=== PATIENT | male | born 1965 | race Caucasian/White ===

== ENCOUNTER 2020-12-27 06:47 | Inpatient (IN) | payer MEDICARE ==
[~2020-12-27] VITALS: Ht 170.2 cm; Wt 110.4 kg
[~2020-12-27 06:47] MED LIST: ASPIRIN CHEWABL81 MG PO; ATORVASTATIN CA20 MG PO; BRILINTA 90 MG90 MG PO; ENTRESTO 24 MG1 EACH PO; GABAPENTIN300 MG PO; GLIPIZIDE5 MG PO; GLUCOPHAGE500 MG PO; JANUVIA100 MG PO; LATANOPROST2.5 ML OP; LEVAQUIN750 MG PO; LIPITOR TAB 2020 MG PO; LOPRESSOR 25 MG25 MG PO; TOPROL XL25 MG PO; TRESIBA FL100 UNIT/1 SQ; TYLENOL 8 HOUR650 MG PO; TYLENOL WITH C1 EACH PO; XALATAN OP SOL2.5 ML OP
[2020-12-27 07:39] LABS: HEMOGLOBIN 12.4 gm/dl (14.0-17.5); RED BLOOD COUNT 4.44 M/UL (4.20-5.50); WHITE BLOOD COUNT 5.3 K/UL (4.5-11.0)
[2020-12-27 08:10] LABS: BUN/CREATININE RATIO 14 (0-10)
[2020-12-27] MEDS ORDERED: TADALAFIL5 MG PO (14:35)
[2020-12-27] MEDS ORDERED: COMBIGAN EYE DRO5 ML EYEBOTH (14:36)
[2020-12-27] MEDS ORDERED: BACTRIM DS TAB1 EACH PO (14:36)
[2020-12-27] MEDS ORDERED: ZETIA10 MG PO (14:38)
[2020-12-27] MEDS ORDERED: BYDUREON P2 MG/0.65 SQ ×2 (14:40→14:41)
[2020-12-27] MEDS ORDERED: HUMALOG100 UNIT/1 SQ (14:42)
[2020-12-28 03:58] LABS: HEMOGLOBIN 12.1 gm/dl (14.0-17.5); RED BLOOD COUNT 4.22 M/UL (4.20-5.50); WHITE BLOOD COUNT 5.3 K/UL (4.5-11.0)
[2020-12-28 04:22] LABS: BUN/CREATININE RATIO 18 (0-10)
--- NOTE | 2020-12-28 11:58 | NUR ---
ASSISTED SURGEON WITH INCISION AND DRAINAGE TO ABSCESS ON BACK OF NECK. INCISION AND DRAINAGE CLOSED WITH 0.25 INCH DRY PACKING WHICH SURGEON STATES WILL NEED TO BE PACKED DAILY. WATCHED SURGEON DEMONSTRATED HOW TO PACK WOUND
[2020-12-29 03:38] LABS: BUN/CREATININE RATIO 18 (0-10)
[2020-12-29] MEDS ORDERED: BACTRIM DS TAB1 EACH PO (16:54)
== END 2020-12-29 17:00 | disposition home or self-care (01) | DRG 580 ==
LOC: ER1 06:47 → CDU 11:09 → M/S 11:09
PROVIDERS: Emergency Medicine; Physician Assistant Medical; ADMIT Internal Medicine
PROC: 0J940ZZ Drainage of Right Neck Subcutaneous Tissue and Fascia, Open Approach (ICD-10-PCS; principal; 2020-12-28)
DX: L02.11 Cutaneous abscess of neck (principal); I50.22 Chronic systolic (congestive) heart failure; I25.110 Atherosclerotic heart disease of native coronary artery with unstable angina pectoris; E78.5 Hyperlipidemia, unspecified; Z20.822 Contact with and (suspected) exposure to COVID-19; E11.9 Type 2 diabetes mellitus without complications; E66.9 Obesity, unspecified; E87.6 Hypokalemia; E83.42 Hypomagnesemia; I11.0 Hypertensive heart disease with heart failure; I25.5 Ischemic cardiomyopathy; Z95.1 Presence of aortocoronary bypass graft; I25.2 Old myocardial infarction; Z79.82 Long term (current) use of aspirin; Z87.891 Personal history of nicotine dependence; Z82.49 Family history of ischemic heart disease and other diseases of the circulatory system; Z68.37 Body mass index [BMI] 37.0-37.9, adult; Z95.810 Presence of automatic (implantable) cardiac defibrillator; Z95.5 Presence of coronary angioplasty implant and graft; Z91.14 Patient's other noncompliance with medication regimen
CPT/HCPCS: 36415; 71045; 80048; 80053; 81001; 82550; 82553; 82962; 83735; 83874; 84132; 84484; 85025; 85027; 87070; 87086; 87205; 93005; 96372; 96374; 96376; 99285; G0378; J1650; J2405; J2543; J3370; J7070; U0002

== ENCOUNTER → 2021-01-12 | Outpatient (CLI) | payer MEDICARE ==
[~2021-01-12] MED LIST changes: +BACTRIM DS TAB1 EACH PO; +BYDUREON P2 MG/0.65 SQ; +COMBIGAN EYE DRO5 ML EYEBOTH; +HUMALOG100 UNIT/1 SQ; +TADALAFIL5 MG PO; +ZETIA10 MG PO
[2021-01-12 13:32] LABS: BUN/CREATININE RATIO 19 (0-10)
== END ==
LOC: LAB 11:48
PROVIDERS: Family Medicine
DX: E78.2 Mixed hyperlipidemia (principal); E11.65 Type 2 diabetes mellitus with hyperglycemia; Z12.5 Encounter for screening for malignant neoplasm of prostate
CPT/HCPCS: 36415; 80053; 80061; 83735; G0103